=== PATIENT | female | born 1960 | race Caucasian/White ===

== ENCOUNTER 2021-06-09 08:59 | Emergency (ER) | payer OTHER ==
[2021-06-09] MEDS ORDERED: DIPHTH,PERTUSS(ACELL),TET 0.5 ML DISP.SYRIN IM ONE ×2 (09:12→09:46)
[2021-06-09 09:40] VITALS: BP 143/93; PULSE 66; TEMP 99.3; BMI 30.2
== END 2021-06-09 10:09 | disposition home or self-care (01) ==
LOC: FER 08:59
PROC: 3E0234Z Introduction of Serum, Toxoid and Vaccine into Muscle, Percutaneous Approach (ICD-10-PCS; principal; 2021-06-09)
DX: S89.91XA Unspecified injury of right lower leg, initial encounter (principal)
CPT/HCPCS: 73562-TC-RT-FY; 90715; 99284-25

== ENCOUNTER 2023-02-05 10:32 | Emergency (ER) | payer OTHER ==
[2023-02-05 10:48] VITALS: BP 126/82; PULSE 72; RESP 18; TEMP 98.8; BMI 31.4
[2023-02-05 11:45] LABS: HEMATOCRIT 45.4 % (32.4-45.2); HEMOGLOBIN 15.3 G/dL (10.7-15.3); MCH 31.5 pg (25.7-33.7); MCHC 33.7 g/dl (32.0-36.0); MEAN CELL VOLUME 93.4 fl (80-96); MEAN PLT VOLUME 8.6 fl (7.5-11.1); PLATELET COUNT 232.9 10^3/uL (134-434); RBC 4.86 10^6/uL (3.60-5.2); WHITE BLOOD COUNT 7.6 10^3/uL (4.0-10.8)
[2023-02-05 11:48] LABS: PLATELET ESTIMATE ADEQUATE
[2023-02-05 11:54] LABS: ALBUMIN 4.2 g/dl (3.4-5.0); BILIRUBIN,TOTAL 0.4 mg/dl (0.2-1); BLOOD UREA NITROGEN 14.8 mg/dl (7-18); CALCIUM 9.8 mg/dl (8.5-10.1); CREATININE 0.8 mg/dl (0.6-1.3); POTASSIUM 4.6 mmol/L (3.5-5.1); SGOT/AST 53.9 U/L (15-37); SGPT/ALT 64.3 U/L (7-52); TOT PROT 6.8 g/dl (6.4-8.2)
== END 2023-02-05 13:53 | disposition home or self-care (01) ==
LOC: FER 10:32
DX: M79.605 Pain in left leg (principal); M54.32 Sciatica, left side
CPT/HCPCS: 36415; 80053; 85027; 85379; 93971-TC; 99284-25

== ENCOUNTER 2023-11-30 06:35 | Emergency (ER) | payer OTHER ==
[2023-11-30 06:45] VITALS: BP 142/94; PULSE 88; RESP 17; TEMP 98.9; BMI 31.6
[2023-11-30] MEDS ORDERED: ACETAMINOPHEN 325 MG TABLET (FP) ONE (09:02)
[2023-11-30] MEDS: ACETAMINOPHEN 325 MG TABLET (FP) PO ONE (09:02)
== END 2023-11-30 09:32 | disposition home or self-care (01) ==
LOC: FER 06:35
DX: M79.652 Pain in left thigh (principal)
CPT/HCPCS: 93971-TC; 99284-25